=== PATIENT | male | born 1930 | race Caucasian/White ===

== ENCOUNTER → 2016-06-04 | Outpatient (CLI) | payer MEDICARE, BC ==
[~2016-06-04] MED LIST: ASPI1TAB69 PO; DIPH1TAB36 PO; ENAL20TA PO; FLUT1SPR5 EACH NARE; FURO1TAB62 PO; LYRI150C PO; MULT-65 PO; PROT40TA PO; TIMO0.5S30 EACH EYE; TRAM50TA PO
[2016-06-04 11:30] LABS: AUTOMATED NEUTROPHIL # 4.4 TH/MM3 (1.8-7.7); BASOPHIL % 0.4 % (0.0-2.0); EOSINOPHIL # 0.2 TH/MM3 (0-0.4); EOSINOPHIL % 3.3 % (0.0-4.0); HEMATOCRIT 42.2 % (39.0-51.0); HEMO FLAGS DIFF FINAL; LYMPH % 19.7 % (9.0-44.0); LYMPHOCYTE # 1.3 TH/MM3 (1.0-4.8); MEAN CELL VOLUME 82.5 FL (80.0-100.0); MEAN CORPUSCULAR HEMOGLOBIN 26.3 PG (27.0-34.0); MEAN CORPUSCULAR HGB CONC 31.9 % (32.0-36.0); MONO % 8.8 % (0.0-8.0); NEUT % 67.8 % (16.0-70.0); PLATELET COUNT 119 TH/MM3 (150-450); RED BLOOD COUNT 5.11 MIL/MM3 (4.50-5.90); RED CELL DISTRIBUTION WIDTH 14.9 % (11.6-17.2); WHITE BLOOD COUNT 6.5 TH/MM3 (4.0-11.0)
[2016-06-04 12:06] LABS: ALKALINE PHOSPHATASE 97 U/L (45-117); ALT (GPT) 27 U/L (12-78); ANION GAP 5 MEQ/L (5-15); AST (GOT) 18 U/L (15-37); BICARBONATE 29.8 MEQ/L (21.0-32.0); BLOOD UREA NITROGEN 23 MG/DL (7-18); CHLORIDE 106 MEQ/L (98-107); GLOMERULAR FILTRATION RATE 50 ML/MIN (>89); GLUCOSE,FASTING 99 MG/DL (74-99); HDL CHOLESTEROL 32.2 MG/DL (40.0-60.0); LDL CHOLESTEROL 55 MG/DL (0-99); POTASSIUM 4.9 MEQ/L (3.5-5.1); SODIUM (NA) 141 MEQ/L (136-145); TOTAL BILIRUBIN ADULT 0.5 MG/DL (0.2-1.0)
== END ==
LOC: PLAB 08:04
PROVIDERS: ATTEND Family Medicine
DX: E78.2 Mixed hyperlipidemia (principal); Z79.899 Other long term (current) drug therapy
CPT/HCPCS: 36415; 80053; 80061; 85025

== ENCOUNTER 2016-06-08 14:20 | Emergency (ER) | payer MEDICARE, BC ==
[~2016-06-08] VITALS: Ht 188 cm; Wt 115.0 kg
[2016-06-08 14:22] VITALS: BP 146/67; PULSE 64; RESP 13; TEMP 97.6; O2SAT 96
[2016-06-08] MEDS ORDERED: ACETAMINOPHEN 500 MG CPLT PO ONE (15:15)
--- NOTE | 2016-06-08 15:40 | PD ---
HPI Chief Complaint: Pain: Acute or Chronic Time Seen by Provider: 15:09 Travel History International Travel<30 days: No Contact w/Intl Traveler<30days: No Traveled to known affect area: No History of Present Illness HPI 85-year-old male here with complaint of left leg pain. Patient was golfing several days ago. States that ever since he has had pain in the left calf that is worse with flexion and extension at the ankle which has made it difficult to walk. He embolus with cane at baseline.. Patient has a history of neuropathy and has some chronic pain in the left leg, swelling in the left leg but noticed that both of this is worse. No history of DVT. No redness, streaking erythema , fevers or chills. Her chest pain or shortness of breath. PFSH Past Medical History Hx Anticoagulant Therapy: Yes (ASPIRIN) Arthritis: Yes Asthma: No Autoimmune Disease: No Blood Disorders: No Anxiety: No Depression: Yes Heart Rhythm Problems: No Cancer: Yes (prostate) Cardiovascular Problems: Yes High Cholesterol: Yes Chemotherapy: No Chest Pain: No Congestive Heart Failure: No COPD: No Cerebrovascular Accident: Yes (TIA) Diabetes: No Diminished Hearing: No Endocrine: No Gastrointestinal Disorders: Yes (BOWEL RESECTION/ SBO) GERD: No Glaucoma: Yes (takes eye drop to bring pressure down) Genitourinary: Yes Headaches: No Hepatitis: No Hiatal Hernia: No Hypertension: Yes Immune Disorder: No Kidney Stones: No Musculoskeletal: Yes (LOWER LEG WEAKNESS) Neurologic: Yes (NEUROPATHYTOES TO BLE BELOW KNEES.) Psychiatric: No Reproductive: No Respiratory: No Immunizations Current: Yes Migraines: No Myocardial Infarction: No Radiation Therapy: Yes (prostate) Renal Failure: No Seizures: No Sickle Cell Disease: No Sleep Apnea: No Thyroid Disease: No Ulcer: No Past Surgical History Abdominal Surgery: Yes (colon resection ) AICD: No Appendectomy: No Arteriovenous Shunt: No Cardiac Surgery: No Cholecystectomy: No Ear Surgery: No Endocrine Surgery: No Eye Surgery: Yes (LASERSURGERYBOTHEYES) Genitourinary Surgery: No Gynecologic Surgery: No Insulin Pump: No Joint Replacement: No Oral Surgery: Yes (TONSILLECTOMY) Pacemaker: No Thoracic Surgery: No Tonsillectomy: Yes Other Surgery: Yes (basal cell removed from right chest wall and under left breast) Social History Alcohol Use: No Tobacco Use: No Substance Use: No Allergies-Medications (Allergen,Severity, Reaction): Coded Allergies: [place] (Verified Allergy, Severe, 06/08/16) Reported Meds & Prescriptions Reported Meds & Active Scripts Active Tramadol (Tramadol HCl) 50 Mg Tab 50 Mg PO Q8H PRN Reported Lasix (Furosemide) 20 Mg Tab 20 Mg PO DAILY Lyrica (Pregabalin) 150 Mg Cap 150 Mg PO BID Flonase Allergy Relief Nasal [place] (Fluticasone Nasal [place]) 50 Mcg/Act [place] 50 Mcg EACH NARE BID Timolol Opth Drops 0.5 % Soln 1 Drop EACH EYE DAILY@0600 Tylenol Pm Extra Strength (Diphenhydramine-Acetaminophen) 25-500 Mg Tab 1 Tab PO HS Aspirin 81 Mg Tabdr 81 Mg PO DAILY Protonix (Pantoprazole Sodium) 40 Mg Tab 40 Mg PO DAILY Multi-Vitamin Daily (Multiple Vitamin) 1 Tab Tab 1 Tab PO DAILY Enalapril (Enalapril Maleate) 20 Mg Tab 20 Mg PO BID Review of Systems Except as stated in HPI: all other systems reviewed are Neg Physical Exam Narrative GENERAL: Pleasant elderly male in no acute distress SKIN: Focused skin assessment warm/dry. HEAD: Normocephalic. EYES: No scleral icterus. No injection or drainage. ENT: Mucous membranes pink and moist. NECK: Supple CARDIOVASCULAR: Regular rate and rhythm. RESPIRATORY: No accessory muscle use. MUSCULOSKELETAL: Left lower extremity with edema to the knee. No redness, aeration. Distal sensation slightly decreased in a stocking-like distribution. Distal pulses intact. Strength is intact to the patient has pain with plantar flexion at the ankle. No palpable cords NEUROLOGICAL: Awake and alert. Normal speech. PSYCHIATRIC: Appropriate mood and affect; insight and judgment normal. Data Data Last Documented VS Vital Signs Date Time Temp Pulse Resp B/P Pulse Ox O2 Delivery O2 Flow Rate FiO2 06/08/16 15:35 16 06/08/16 14:22 97.6 64 146/67 96 Room Air Orders Us Leg Venous Doppler (06/08/16 ) Acetaminophen (Tylenol) (06/08/16 15:15) MDM Medical Decision Making Medical Screen Exam Complete: Yes Emergency Medical Condition: Yes Medical Record Reviewed: Yes Differential Diagnosis 85-year-old male here with left calf pain and swelling after golfing several days ago. Differential includes acute on chronic pain, neuropathy, DVT, gastrocnemius strain. No evidence of cellulitis on exam Narrative Course Patient given Tylenol for pain. Duplex ultrasound the left lower extremity showed no evidence of DVT. Patient reassured and discharged home. Diagnosis Primary Impression: Gastrocnemius strain, left Qualified Code: S86.112A - Gastrocnemius strain, left, initial encounter Referrals: Primary Care Physician as needed Additional Instructions: Tylenol, Aleve as needed for pain. Rest, ice, elevate. Follow-up with primary care provider symptoms persist. Med/Other Pt SpecificInfo: No Change to Meds Disposition: 01 DISCHARGE HOME Condition: Stable Brenda Henning MD Jun 08, 2016 15:40
--- NOTE | 2016-06-08 17:03 | RADRPT ---
EXAM DATE/TIME: 06/08/2016 16:15 [facility] COMPARISON: No previous studies available for comparison. INDICATIONS : Left leg swelling. MEDICAL HISTORY : Hypertension. Hypercholesterolemia. Carcinoma, prostate. CVA. SURGICAL HISTORY : Tonsillectomy. Bowel and colon resection. ENCOUNTER: Initial ACUITY: 3 days PAIN SCORE: 0/10 LOCATION: Left leg. TECHNIQUE: Venous ultrasound of the leg was performed from the inguinal ligament to the proximal calf. Real-time, color Doppler and spectral tracing, compression and augmentation techniques were us ed. FINDINGS: There is normal compressibility of the deep venous system from the inguinal region to the proximal ca lf. No echogenic clot is seen in the lumen of the common femoral, femoral, popliteal, and posterior tibial veins. There is a normal response of the venous system to proximal and distal augmentation an d respiration. CONCLUSION: No evidence of acute DVT. Mark Vu MD on June 08, 2016 at 17:01 Board Certified Radiologist. This report was verified electronically.
== END 2016-06-08 17:18 | disposition home or self-care (01) ==
LOC: NEPD 14:20
DX: S86.112A Strain of other muscle(s) and tendon(s) of posterior muscle group at lower leg level, left leg, initial encounter (principal); G62.9 Polyneuropathy, unspecified; E78.00 Pure hypercholesterolemia, unspecified; I10 Essential (primary) hypertension; Z86.73 Personal history of transient ischemic attack (TIA), and cerebral infarction without residual deficits; Z79.82 Long term (current) use of aspirin; M79.605 Pain in left leg
CPT/HCPCS: 93971

== ENCOUNTER → 2016-12-09 | Outpatient (CLI) | payer MEDICARE, BC ==
[~2016-12-09] MED LIST changes: -TRAM50TA PO
[2016-12-09 13:46] LABS: HDL CHOLESTEROL 39.9 MG/DL (40.0-60.0); INDIRECT BILIRUBIN 0.4 MG/DL (0.0-0.8); TOTAL BILIRUBIN ADULT 0.5 MG/DL (0.2-1.0)
== END ==
LOC: PLAB 08:26
PROVIDERS: ATTEND Family Medicine
DX: E78.2 Mixed hyperlipidemia (principal); Z79.899 Other long term (current) drug therapy
CPT/HCPCS: 36415; 80061; 80076